=== PATIENT | male | born 1995 | race American Indian/Alaskan Native ===

== ENCOUNTER 2016-05-01 20:32 | Emergency (ER) | payer SELFPAY ==
[2016-05-01 20:55] VITALS: BP 130/88
[2016-05-01 21:42] LABS: Basophils % (Auto) 0.6 % (0.0-1.8); Eosinophils % (Auto) 1.8 % (0.0-4.3); Hematocrit 51.3 % (35.5-45.6); Hemoglobin 16.5 gm/dl (11.8-15.2); Mean Corpuscular HGB Conc 32 % (32-34); Mean Corpuscular Hemoglobin 27 pg (28-32); Mean Corpuscular Volume 83 fl (84-94); Platelet Count 187 K/mm3 (140-440); Red Blood Count 6.19 M/mm3 (3.65-5.03); Red Cell Distribution Width 14.6 % (13.2-15.2)
[2016-05-01 22:36] LABS: BUN/Creatinine Ratio 16.66; Blood Urea Nitrogen 10 mg/dL (9-20); Calcium 9.4 mg/dL (8.4-10.2); Carbon Dioxide 24 mmol/L (22-30); Chloride 98.8 mmol/L (98-107); Glucose 83 mg/dL (75-100); Potassium 4.3 mmol/L (3.6-5.0); Sodium 138 mmol/L (137-145)
[2016-05-01 22:41] LABS: Anion Gap 20 mmol/L
== END 2016-05-02 02:00 | disposition left against medical advice (07) ==
LOC: ED 20:32
DX: R07.89 Other chest pain (principal); R20.2 Paresthesia of skin; Z87.891 Personal history of nicotine dependence; Z53.21 Procedure and treatment not carried out due to patient leaving prior to being seen by health care provider
CPT/HCPCS: 36415; 80048; 84484; 85025; 93005; 93010